=== PATIENT | male | born 1995 | race Caucasian/White ===

== ENCOUNTER → 2023-09-05 06:35 | Day surgery (SDC) | payer OTHER, SELFPAY | LOC: GI 06:35 | PROVIDERS: ATTENDING PHYSICIAN Internal Medicine | DX: R10.84 Generalized abdominal pain (principal); R19.7 Diarrhea, unspecified; K51.00 Ulcerative (chronic) pancolitis without complications; K52.89 Other specified noninfective gastroenteritis and colitis | CPT/HCPCS: 45380; 88305 ==

== ENCOUNTER → 2024-02-05 07:39 | Outpatient (REF) | payer BC, SELFPAY | LOC: MRI 07:39 | PROVIDERS: ATTENDING PHYSICIAN Nurse Practitioner; FAMILY PHYSICIAN Internal Medicine | DX: K52.9 Noninfective gastroenteritis and colitis, unspecified (principal); R19.7 Diarrhea, unspecified | CPT/HCPCS: 72197; 74183; A9585 ==

== ENCOUNTER → 2025-01-09 09:51 | Outpatient (REF) | payer BC, SELFPAY | LOC: RAD 09:51 | PROVIDERS: ATTENDING PHYSICIAN Nurse Practitioner; FAMILY PHYSICIAN Internal Medicine | DX: K51.00 Ulcerative (chronic) pancolitis without complications (principal) | CPT/HCPCS: 74019 ==

== ENCOUNTER 2025-04-05 06:29 | Day surgery (SDC) | payer BC, SELFPAY | END 2025-04-05 12:38 | disposition home or self-care (01) | LOC: GI 06:29 | PROVIDERS: ATTENDING PHYSICIAN Internal Medicine | DX: K51.00 Ulcerative (chronic) pancolitis without complications (principal) | CPT/HCPCS: 45380; 88305 ==

== ENCOUNTER → 2025-04-23 07:56 | Outpatient (REF) | payer BC, SELFPAY | LOC: MRI 3T 07:56 | PROVIDERS: ATTENDING PHYSICIAN Internal Medicine; FAMILY PHYSICIAN Internal Medicine | DX: K52.9 Noninfective gastroenteritis and colitis, unspecified (principal); R10.9 Unspecified abdominal pain; K52.3 Indeterminate colitis | CPT/HCPCS: 72197; 74183; A9575 ==